=== PATIENT | male | born 1950 | race African-American/Black ===

== ENCOUNTER 2019-05-11 00:21 | Emergency (ER) | payer BC, OTHER ==
[~2019-05-11] VITALS: Ht 180.3 cm; Wt 109.1 kg
[2019-05-11] MEDS ORDERED: ATOR10TA84 PO (00:33)
[2019-05-11] MEDS ORDERED: ASPI81 PO (00:33)
[2019-05-11 01:15] VITALS: BP 140/80
== END 2019-05-11 01:15 | disposition home or self-care (01) ==
LOC: EMS 00:21
DX: S81.801A Unspecified open wound, right lower leg, initial encounter (principal); S80.811A Abrasion, right lower leg, initial encounter; E78.00 Pure hypercholesterolemia, unspecified; Z79.899 Other long term (current) drug therapy; X58.XXXA Exposure to other specified factors, initial encounter; Y93.89 Activity, other specified; Y92.89 Other specified places as the place of occurrence of the external cause; Y99.8 Other external cause status

== ENCOUNTER 2019-05-13 10:49 | Emergency (ER) | payer BC ==
[~2019-05-13] VITALS: Ht 180.3 cm; Wt 109.1 kg
[~2019-05-13 10:49] MED LIST: ASPI81 PO; ATOR10TA84 PO
[2019-05-13 10:57] VITALS: BP 125/88
[2019-05-13 11:10] LABS: GLUCOSE,POINT OF CARE 106 MG/DL (70-110)
== END 2019-05-13 11:47 | disposition home or self-care (01) ==
LOC: EMS 10:50
DX: I83.91 Asymptomatic varicose veins of right lower extremity (principal); E78.00 Pure hypercholesterolemia, unspecified; Z79.82 Long term (current) use of aspirin; Z79.899 Other long term (current) drug therapy

== ENCOUNTER 2020-05-30 14:55 | Emergency (ER) | payer BC ==
[~2020-05-30] VITALS: Ht 180.3 cm; Wt 115.9 kg
[~2020-05-30 14:55] MED LIST changes: +ASPI-728 PO; -ASPI81 PO
[2020-05-30] MEDS ORDERED: NITROGLYCERIN 2% (1 GM=INCH) PACKET TP ONE (15:30)
[2020-05-30] MEDS ORDERED: ASPIRIN 81 MG CHEWABLE TABLET PO ONE (15:30)
[2020-05-30] MEDS ORDERED: ATOR40TA28 PO (15:32)
[2020-05-30 15:55] LABS: BASOPHILS % (AUTO) 1.2 % (0.0-2.0); EOSINOPHILS % (AUTO) 4.4 % (1.0-6.0); HEMATOCRIT 42.5 % (41-53); HEMOGLOBIN 13.4 g/dL (13.5-17.5); LYMPHOCYTES # (AUTO) 1.6 K/uL (1.0-4.8); LYMPHOCYTES % (AUTO) 20.5 % (22.0-44.0); MEAN CORPUSCULAR HEMOGLOBIN 23.2 pg (26.0-34.0); MEAN CORPUSCULAR HGB CONC 31.6 G/dL (31.0-37.0); MEAN CORPUSCULAR VOLUME 74 fL (80-100); MONOCYTES # (AUTO) 0.6 K/uL (0.1-1.0); MONOCYTES % (AUTO) 7.6 % (2.0-9.0); NEUTROPHILS % (AUTO) 66.3 % (40.0-70.0); PLATELET COUNT (AUTO) 167 K/uL (150-450); RED BLOOD CELL COUNT(AUTO) 5.77 MIL/uL (4.50-5.90); RED CELL DISTRIBUTION WIDTH 15.2 % (11.5-14.5)
[2020-05-30 16:01] LABS: D-DIMER 0.21 mg/L FEU (0.00-0.50); PROTHROMBIN TIME 10.7 SEC (9.4-11.6)
[2020-05-30 16:04] LABS: ANION GAP 6 mmol/L (8-16); CALCIUM, TOTAL 8.8 mg/dL (8.8-10.5); CARBON DIOXIDE 29 mmol/L (22-29); CHLORIDE 103 mmol/L (98-107); CREATININE 1.08 mg/dL (0.60-1.30); GLOMERULAR FILTR. RATE CALC > 60 mL/min (>60); GLUCOSE,RANDOM 129 mg/dL (70-110); POTASSIUM 3.9 mmol/L (3.5-5.1); SODIUM SERUM 138 mmol/L (136-145); UREA NITROGEN, BLOOD 19 mg/dL (7-18)
[2020-05-30 16:09] LABS: ALANINE AMINOTRANSFERASE 39 U/L (12-78); ALBUMIN 3.6 g/dL (3.4-5.0); ALKALINE PHOSPHATASE 88 U/L (46-116); ASPARTATE AMINOTRANSFERASE 24 U/L (15-37); BILIRUBIN,TOTAL 0.4 mg/dL (0.1-1.0); LIPASE 94 U/L (73-393)
[2020-05-30 16:38] VITALS: BP 120/86
[2020-05-30] MEDS ORDERED: KETOROLAC TROMETHAMINE 30 MG/ML VIAL IVP ONE (17:15)
== END 2020-05-30 18:28 | disposition home or self-care (01) ==
LOC: EMS 14:59
DX: R07.9 Chest pain, unspecified (principal); R06.02 Shortness of breath; E11.9 Type 2 diabetes mellitus without complications; E78.00 Pure hypercholesterolemia, unspecified; Z79.82 Long term (current) use of aspirin
CPT/HCPCS: 36415; 70450; 71045; 80053; 82962; 83690; 84484; 85025; 85379; 85610; 93005; 96374; 99285; J1885

== ENCOUNTER 2021-06-17 07:18 | Inpatient (IN) | payer BC, MEDICARE ==
[~2021-06-17] VITALS: Ht 180.3 cm; Wt 110.3 kg
[~2021-06-17 07:18] MED LIST changes: +ASPI-1450 PO; -ASPI-728 PO; -ATOR10TA84 PO; +ATOR40TA28 PO
[2021-06-17] MEDS ORDERED: ONDANSETRON HCL 4 MG/2 ML VIAL IVP ONE (08:30)
[2021-06-17] MEDS ORDERED: ACETAMINOPHEN 500 MG TABLET PO ONE (08:30)
[2021-06-17] MEDS ORDERED: SODIUM CHLORIDE 0.9% 100 ML ONE (08:31)
[2021-06-17] MEDS ORDERED: IOHEXOL 350 MG/ML 150 ML VIAL ONE (08:31)
[2021-06-17 09:08] LABS: PROTHROMBIN TIME 10.4 SEC (9.4-11.6)
[2021-06-17 09:12] LABS: BASOPHILS % (AUTO) 0.2 % (0.0-2.0); EOSINOPHILS % (AUTO) 0.1 % (1.0-6.0); HEMATOCRIT 45.7 % (41-53); HEMOGLOBIN 14.8 g/dL (13.5-17.5); LYMPHOCYTES # (AUTO) 0.8 K/uL (1.0-4.8); LYMPHOCYTES % (AUTO) 9.9 % (22.0-44.0); MEAN CORPUSCULAR HEMOGLOBIN 23.4 pg (26.0-34.0); MEAN CORPUSCULAR HGB CONC 32.3 G/dL (31.0-37.0); MEAN CORPUSCULAR VOLUME 72 fL (80-100); MONOCYTES # (AUTO) 1.2 K/uL (0.1-1.0); MONOCYTES % (AUTO) 14.7 % (2.0-9.0); NEUTROPHILS # (AUTO) 6.2 K/uL (1.8-7.7); NEUTROPHILS % (AUTO) 75.1 % (40.0-70.0); PLATELET COUNT (AUTO) 140 K/uL (150-450); RED BLOOD CELL COUNT(AUTO) 6.32 MIL/uL (4.50-5.90); RED CELL DISTRIBUTION WIDTH 15.1 % (11.5-14.5)
[2021-06-17 09:23] LABS: ANION GAP 10 mmol/L (8-16); CALCIUM, TOTAL 8.5 mg/dL (8.8-10.5); CARBON DIOXIDE 28 mmol/L (22-29); CHLORIDE 96 mmol/L (98-107); CREATININE 1.17 mg/dL (0.60-1.30); GLOMERULAR FILTR. RATE CALC > 60 mL/min (>60); GLUCOSE,RANDOM 128 mg/dL (70-110); POTASSIUM 3.7 mmol/L (3.5-5.1); SODIUM SERUM 134 mmol/L (136-145); UREA NITROGEN, BLOOD 24 mg/dL (7-18)
[2021-06-17 09:26] LABS: ALANINE AMINOTRANSFERASE 42 U/L (12-78); ALBUMIN 2.9 g/dL (3.4-5.0); ALKALINE PHOSPHATASE 75 U/L (46-116); ASPARTATE AMINOTRANSFERASE 39 U/L (15-37); BILIRUBIN,TOTAL 0.5 mg/dL (0.1-1.0); LIPASE 47 U/L (73-393); TOTAL PROTEIN, SERUM 7.5 g/dL (6.4-8.2)
[2021-06-17 09:34] LABS: APPEARANCE,URINE CLEAR (CLEAR); BILIRUBIN,URINE NEGATIVE (NEGATIVE); GLUCOSE, URINE (UA) NEGATIVE (NEGATIVE); KETONES,URINE NEGATIVE (NEGATIVE); LEUKOCYTE ESTERASE ,URINE NEGATIVE (NEGATIVE); NITRATE,URINE NEGATIVE (NEGATIVE); OCCULT BLOOD,URINE MODERATE (NEGATIVE); PH,URINE 6.5 (5.0-8.0); PROTEIN,URINE SEE CONFIRM (NEGATIVE); UROBILINOGEN,URINE 0.2 mg/dL (<=1.0)
[2021-06-17 09:42] LABS: SULFOSALICYLIC ACID,URINE 1+ (Negative)
[2021-06-17] MEDS ORDERED: PANTOPRAZOLE SODIUM 40 MG/VIAL IVP ONE (09:45)
[2021-06-17 09:47] LABS: BACTERIA,URINE None Seen /HPF (None Seen); SQUAMOUS EPITHELIAL CELL,UR Few /LPF (None Seen); WBC,URINE 0-2 /HPF (0-5)
[2021-06-17] MEDS ORDERED: MetroNIDAZOLE 500 MG/NACL 100 ML IV ONE (10:15)
[2021-06-17] MEDS ORDERED: CIPROFLOXACIN 400 MG/D5% WATER 200 ML IV ONE (10:15)
[2021-06-17] MEDS ORDERED: ACETAMINOPHEN 325 MG TABLET PO PRN ×2 (11:00→14:00)
[2021-06-17] MEDS ORDERED: ONDANSETRON HCL 4 MG/2 ML VIAL IVP PRN ×2 (11:00→14:00)
[2021-06-17 11:23] LABS: COVID AG,FIA SOURCE NASOPHARYNGEAL
[2021-06-17] MEDS: 0.9% SODIUM CHLORIDE 10 ML SYRINGE IVP PRN ×3 (11:44→11:54)
[2021-06-17 12:16] LABS: C.DIFF GDH ANTIGEN, Stool Negative (Negative); C.DIFF TOXINS A&B, Stool Negative (Negative)
[2021-06-17] MEDS ORDERED: BISACODYL 10 MG RECTAL RECTAL SUPPOSITORY PR PRN (14:00)
[2021-06-17] MEDS ORDERED: DILTIAZEM HCL 5 MG/ML 5 ML VIAL IVP ONE (14:00)
[2021-06-17] MEDS ORDERED: MAGNESIUM HYDROXIDE SUSPENSION 30 ML UDCUP PO PRN (14:00)
[2021-06-17] MEDS: HEPARIN SODIUM,PORCINE 5,000 UNITS/ML VIAL SQ SCH ×2 (15:16→23:20)
[2021-06-17] MEDS: PIPERACILLIN/TAZO 3.375 GM/D5W 50 ML IV SCH (17:29)
[2021-06-17] MEDS ORDERED: DEXTROSE 5%-0.45% SODIUM CHL 1,000 ML IV ONE (18:45)
[2021-06-17 19:00] LABS: BASOPHILS % (AUTO) 0.4 % (0.0-2.0); EOSINOPHILS % (AUTO) 0.3 % (1.0-6.0); HEMOGLOBIN 14.7 g/dL (13.5-17.5); LYMPHOCYTES # (AUTO) 1.2 K/uL (1.0-4.8); MEAN CORPUSCULAR HEMOGLOBIN 23.5 pg (26.0-34.0); MEAN CORPUSCULAR HGB CONC 31.9 G/dL (31.0-37.0); MEAN CORPUSCULAR VOLUME 74 fL (80-100); MONOCYTES # (AUTO) 1.4 K/uL (0.1-1.0); MONOCYTES % (AUTO) 15.3 % (2.0-9.0); NEUTROPHILS # (AUTO) 6.5 K/uL (1.8-7.7); PLATELET COUNT (AUTO) 148 K/uL (150-450); RED BLOOD CELL COUNT(AUTO) 6.25 MIL/uL (4.50-5.90); RED CELL DISTRIBUTION WIDTH 15.4 % (11.5-14.5)
[2021-06-17] MEDS: DOCUSATE SODIUM 100 MG CAPSULE PO SCH (21:00)
[2021-06-17 22:18] VITALS: BP 132/86
[2021-06-17] MEDS: MORPHINE SULFATE 2 MG/ML SYRINGE IVP PRN (22:18)
[2021-06-17] MEDS ORDERED: PNEUMOCOCCAL VACCINE POLYVALENT 0.5 ML VIAL [PPSV23] IM. ONE (23:15)
[2021-06-17] MEDS: ZOLPIDEM TARTRATE 5 MG TABLET PO PRN (23:23)
[2021-06-18] VITALS (7 sets, daily range): BP systolic 101–135; BP diastolic 62–93
[2021-06-18] MEDS: PIPERACILLIN/TAZO 3.375 GM/D5W 50 ML IV SCH ×5 (00:30→23:34)
[2021-06-18] MEDS: MORPHINE SULFATE 2 MG/ML SYRINGE IVP PRN (06:03)
[2021-06-18 07:34] LABS: HEMATOCRIT 42.7 % (41-53); HEMOGLOBIN 13.8 g/dL (13.5-17.5); MEAN CORPUSCULAR HEMOGLOBIN 23.4 pg (26.0-34.0); MEAN CORPUSCULAR HGB CONC 32.3 G/dL (31.0-37.0); MEAN CORPUSCULAR VOLUME 73 fL (80-100); PLATELET COUNT (AUTO) 155 K/uL (150-450); RED BLOOD CELL COUNT(AUTO) 5.89 MIL/uL (4.50-5.90); RED CELL DISTRIBUTION WIDTH 15.5 % (11.5-14.5)
[2021-06-18 08:01] LABS: HEMOGLOBIN A1C 6.5 % (3.8-5.6)
[2021-06-18 08:10] LABS: ALANINE AMINOTRANSFERASE 38 U/L (12-78); ALBUMIN 2.7 g/dL (3.4-5.0); ALKALINE PHOSPHATASE 64 U/L (46-116); ANION GAP 8 mmol/L (8-16); ASPARTATE AMINOTRANSFERASE 27 U/L (15-37); BILIRUBIN,TOTAL 0.4 mg/dL (0.1-1.0); CALCIUM, TOTAL 8.3 mg/dL (8.8-10.5); CARBON DIOXIDE 30 mmol/L (22-29); CHLORIDE 99 mmol/L (98-107); CHOL/HDL RATIO 4.6 (4.2-7.3); CHOLESTEROL 120 mg/dL (131-200); CREATININE 1.15 mg/dL (0.60-1.30); GLOMERULAR FILTR. RATE CALC > 60 mL/min (>60); GLUCOSE,RANDOM 138 mg/dL (70-110); HDL CHOLESTEROL 26 mg/dL (40-60); LDL CHOL (CALC.) 73 mg/dL (0-130); SODIUM SERUM 137 mmol/L (136-145); THYROID STIMULATING HORMONE 1.45 uIU/mL (0.36-3.74); TRIGLYCERIDES 106 mg/dL (15-150); UREA NITROGEN, BLOOD 17 mg/dL (7-18)
[2021-06-18 08:12] LABS: BAND NEUTROPHILS % (MANUAL) 12 % (0-5); LYMPHOCYTES % (MANUAL) 28 % (22-44); MONOCYTES % (MANUAL) 1 % (2-9); SEGMENTED NEUTROPHILS % 59 % (40-70)
[2021-06-18] MEDS: HEPARIN SODIUM,PORCINE 5,000 UNITS/ML VIAL SQ SCH ×3 (08:43→23:34)
[2021-06-18] MEDS: PANTOPRAZOLE SODIUM 40 MG DR TABLET PO SCH (08:43)
[2021-06-18] MEDS: ATORVASTATIN CALCIUM 40 MG TABLET PO SCH (08:43)
[2021-06-18] MEDS: ASPIRIN 81 MG CHEWABLE TABLET PO SCH (08:43)
[2021-06-18] MEDS: DOCUSATE SODIUM 100 MG CAPSULE PO SCH ×2 (08:43→21:00)
[2021-06-18] MEDS: HYDROCODONE/ACETAMINOPHEN 5-325 MG TABLET PO PRN ×2 (08:48→21:17)
[2021-06-18] MEDS ORDERED: POTASSIUM CHL 10 MEQ/WATER 50 ML IV PRN (10:30)
[2021-06-18] MEDS: DILTIAZEM HCL 30 MG TABLET PO SCH ×3 (11:24→23:34)
[2021-06-18] MEDS: POTASSIUM CHLORIDE 20 MEQ ER TABLET PO PRN (11:27)
[2021-06-18] MEDS ORDERED: SODIUM CHLORIDE 0.9% 250 ML IV ONE (18:44)
[2021-06-18] MEDS: ZOLPIDEM TARTRATE 5 MG TABLET PO PRN (22:05)
[2021-06-19] MEDS: POTASSIUM CHLORIDE 20 MEQ ER TABLET PO PRN ×2 (01:43→12:21)
[2021-06-19] MEDS: PIPERACILLIN/TAZO 3.375 GM/D5W 50 ML IV SCH ×4 (05:19→23:47)
[2021-06-19] MEDS: DILTIAZEM HCL 30 MG TABLET PO SCH ×4 (05:25→23:48)
[2021-06-19 05:52] VITALS: BP 108/74
[2021-06-19 07:06] LABS: BASOPHILS % (AUTO) 0.4 % (0.0-2.0); EOSINOPHILS % (AUTO) 1.9 % (1.0-6.0); HEMATOCRIT 41.2 % (41-53); HEMOGLOBIN 13.2 g/dL (13.5-17.5); LYMPHOCYTES # (AUTO) 1.3 K/uL (1.0-4.8); MEAN CORPUSCULAR HEMOGLOBIN 23.4 pg (26.0-34.0); MEAN CORPUSCULAR HGB CONC 31.9 G/dL (31.0-37.0); MEAN CORPUSCULAR VOLUME 73 fL (80-100); MONOCYTES # (AUTO) 1.5 K/uL (0.1-1.0); NEUTROPHILS # (AUTO) 4.6 K/uL (1.8-7.7); NEUTROPHILS % (AUTO) 60.7 % (40.0-70.0); PLATELET COUNT (AUTO) 168 K/uL (150-450); RED BLOOD CELL COUNT(AUTO) 5.62 MIL/uL (4.50-5.90); RED CELL DISTRIBUTION WIDTH 15.5 % (11.5-14.5)
[2021-06-19 07:17] LABS: ANION GAP 7 mmol/L (8-16); CALCIUM, TOTAL 8.5 mg/dL (8.8-10.5); CARBON DIOXIDE 32 mmol/L (22-29); CHLORIDE 102 mmol/L (98-107); CREATININE 1.19 mg/dL (0.60-1.30); GLOMERULAR FILTR. RATE CALC > 60 mL/min (>60); GLUCOSE,RANDOM 112 mg/dL (70-110); SODIUM SERUM 141 mmol/L (136-145); UREA NITROGEN, BLOOD 10 mg/dL (7-18)
[2021-06-19 07:46] VITALS: BP 113/74
[2021-06-19] MEDS: HEPARIN SODIUM,PORCINE 5,000 UNITS/ML VIAL SQ SCH ×3 (08:00→23:47)
[2021-06-19] MEDS: PANTOPRAZOLE SODIUM 40 MG DR TABLET PO SCH (08:39)
[2021-06-19] MEDS: ATORVASTATIN CALCIUM 40 MG TABLET PO SCH (08:39)
[2021-06-19] MEDS: DOCUSATE SODIUM 100 MG CAPSULE PO SCH ×2 (08:40→21:00)
[2021-06-19] MEDS: ASPIRIN 81 MG CHEWABLE TABLET PO SCH (09:00)
[2021-06-19 11:17] VITALS: BP 110/63
[2021-06-19 15:48] VITALS: BP 106/67
[2021-06-19] MEDS: HYDROCODONE/ACETAMINOPHEN 5-325 MG TABLET PO PRN (16:50)
[2021-06-19 20:05] VITALS: BP 110/74
[2021-06-19] MEDS: ZOLPIDEM TARTRATE 5 MG TABLET PO PRN (23:48)
[2021-06-19 23:59] VITALS: BP 111/76
[2021-06-20 05:08] VITALS: BP 119/65
[2021-06-20] MEDS: DILTIAZEM HCL 30 MG TABLET PO SCH (05:32)
[2021-06-20] MEDS: PIPERACILLIN/TAZO 3.375 GM/D5W 50 ML IV SCH (05:32)
[2021-06-20 06:53] LABS: BASOPHILS % (AUTO) 0.5 % (0.0-2.0); EOSINOPHILS % (AUTO) 1.7 % (1.0-6.0); HEMATOCRIT 39.7 % (41-53); HEMOGLOBIN 12.6 g/dL (13.5-17.5); LYMPHOCYTES # (AUTO) 1.5 K/uL (1.0-4.8); LYMPHOCYTES % (AUTO) 16.5 % (22.0-44.0); MEAN CORPUSCULAR HEMOGLOBIN 23.3 pg (26.0-34.0); MEAN CORPUSCULAR HGB CONC 31.8 G/dL (31.0-37.0); MEAN CORPUSCULAR VOLUME 73 fL (80-100); MONOCYTES # (AUTO) 1.7 K/uL (0.1-1.0); MONOCYTES % (AUTO) 19.2 % (2.0-9.0); NEUTROPHILS # (AUTO) 5.5 K/uL (1.8-7.7); NEUTROPHILS % (AUTO) 62.1 % (40.0-70.0); PLATELET COUNT (AUTO) 180 K/uL (150-450); RED CELL DISTRIBUTION WIDTH 15.3 % (11.5-14.5)
[2021-06-20 07:07] LABS: ANION GAP 5 mmol/L (8-16); CALCIUM, TOTAL 8.6 mg/dL (8.8-10.5); CARBON DIOXIDE 33 mmol/L (22-29); CHLORIDE 101 mmol/L (98-107); CREATININE 1.24 mg/dL (0.60-1.30); GLOMERULAR FILTR. RATE CALC > 60 mL/min (>60); GLUCOSE,RANDOM 119 mg/dL (70-110); POTASSIUM 3.1 mmol/L (3.5-5.1); SODIUM SERUM 139 mmol/L (136-145); UREA NITROGEN, BLOOD 9 mg/dL (7-18)
[2021-06-20 07:30] VITALS: BP 79/50
[2021-06-20] MEDS: ASPIRIN 81 MG CHEWABLE TABLET PO SCH (08:48)
[2021-06-20] MEDS: DOCUSATE SODIUM 100 MG CAPSULE PO SCH (08:49)
[2021-06-20] MEDS: ATORVASTATIN CALCIUM 40 MG TABLET PO SCH (08:50)
[2021-06-20] MEDS: PANTOPRAZOLE SODIUM 40 MG DR TABLET PO SCH (08:50)
[2021-06-20] MEDS ORDERED: APIXABAN 5 MG TABLET PO SCH (09:00)
[2021-06-20] MEDS ORDERED: TERBINAFINE HCL 1% 30 GM CREAM TP SCH (09:00)
[2021-06-20] MEDS ORDERED: MULTIVITAMINS WITH MINERALS, THERAPEUTIC TABLET PO SCH (09:00)
[2021-06-20] MEDS ORDERED: ASCORBIC ACID 500 MG TABLET PO SCH (09:00)
[2021-06-20] MEDS ORDERED: DILTIAZEM HCL CD 120 MG ER CAPSULE PO SCH (09:00)
[2021-06-20] MEDS: POTASSIUM CHLORIDE 20 MEQ ER TABLET PO PRN (09:35)
[2021-06-20] MEDS ORDERED: DILT-39 PO (10:38)
[2021-06-20] MEDS ORDERED: METR500 PO ×2 (10:39→10:45)
[2021-06-20] MEDS ORDERED: CIPR-278 PO (10:42)
[2021-06-20] MEDS ORDERED: APIX5TAB PO (10:43)
[2021-06-20] MEDS ORDERED: ATOR40TA28 PO (10:46)
[2021-06-20] MEDS ORDERED: ASPI-1450 PO (10:48)
[2021-06-20] MEDS ORDERED: TERB125S TP (10:56)
[2021-06-23 20:06] LABS: OVA AND PARASITES EXAM Final report
== END 2021-06-20 11:40 | disposition home or self-care (01) | DRG 372 ==
LOC: EMS 07:18 → 5S 18:32
PROVIDERS: ADMIT Internal Medicine; ATTEND Internal Medicine
DX: A04.9 Bacterial intestinal infection, unspecified (principal); I48.92 Unspecified atrial flutter; E87.1 Hypo-osmolality and hyponatremia; R79.89 Other specified abnormal findings of blood chemistry; E78.00 Pure hypercholesterolemia, unspecified; E78.5 Hyperlipidemia, unspecified; E66.01 Morbid (severe) obesity due to excess calories; Z20.822 Contact with and (suspected) exposure to COVID-19; E11.9 Type 2 diabetes mellitus without complications; I10 Essential (primary) hypertension; I77.810 Thoracic aortic ectasia; Z79.01 Long term (current) use of anticoagulants; Z79.82 Long term (current) use of aspirin; Z79.899 Other long term (current) drug therapy; Z68.33 Body mass index [BMI] 33.0-33.9, adult
CPT/HCPCS: 71045; 74177; 80048; 80053; 80061; 81001; 81002; 82271; 83036; 83605; 83690; 84132; 84443; 84484; 85025; 85610; 85730; 86850; 86900; 86901; 87045; 87177; 87324; 87449; 93005; 93306; 99291; C9113; G0378; G0480; J0744; J1644; J2270; J2405; J2543; J3490; J7050; Q9967; 36415-L1; 36415-TC